=== PATIENT | male | born 1945 | race Caucasian/White ===

== ENCOUNTER 2017-04-08 14:06 | Emergency (ER) | payer MEDICAID ==
[~2017-04-08] VITALS: Ht 185.4 cm; Wt 74.8 kg
== END 2017-04-08 18:00 | disposition short-term general hospital (02) ==
LOC: ER 14:06
PROC: 0T9B70Z Drainage of Bladder with Drainage Device, Via Natural or Artificial Opening (ICD-10-PCS; principal; 2017-04-08)
DX: N40.0 Benign prostatic hyperplasia without lower urinary tract symptoms (principal); N20.0 Calculus of kidney; Z88.6 Allergy status to analgesic agent; Z88.5 Allergy status to narcotic agent; Z88.8 Allergy status to other drugs, medicaments and biological substances